=== PATIENT | female | born 1960 | race Caucasian/White ===

== ENCOUNTER 2016-05-04 10:50 | Outpatient (CLI) | payer OTHER | END 2016-05-04 10:51 | disposition home or self-care (01) | DX: Z12.31 Encounter for screening mammogram for malignant neoplasm of breast (principal); Z80.3 Family history of malignant neoplasm of breast ==

== ENCOUNTER 2016-10-26 08:53 | Outpatient (CLI) | payer OTHER ==
[2016-10-26 16:55] LABS: CREATININE 0.5 mg/dL (0.4-1.0); POTASSIUM 3.9 mmol/L (3.5-5.0)
== END 2016-10-26 08:54 | disposition home or self-care (01) ==
LOC: LAB.WCP 08:53
PROVIDERS: ATTEND Physician Assistant Medical
DX: R73.01 Impaired fasting glucose (principal)
CPT/HCPCS: 36415; 80048

== ENCOUNTER 2017-03-09 08:00 | Outpatient (CLI) | payer OTHER ==
[2017-03-09 12:51] LABS: BASOPHILS % (AUTO) 0.6 %; EOSINOPHILS # (AUTO) 0.1 10^3/uL (0.0-0.7); EOSINOPHILS % (AUTO) 0.9 %; LYMPHOCYTES # (AUTO) 1.9 10^3/uL (1.5-3.5); LYMPHOCYTES % (AUTO) 32.2 %; MEAN CORPUSCULAR HEMOGLOBIN 30.9 pg (27.0-31.0); MEAN CORPUSCULAR HGB CONC 33.5 g/dL (32.0-36.0); MEAN CORPUSCULAR VOLUME 92.2 fL (81.0-99.0); MEAN PLATELET VOLUME 8.8 fL (7.9-10.8); MONOCYTES # (AUTO) 0.3 10^3/uL (0.0-1.0); MONOCYTES % (AUTO) 4.9 %; NEUTROPHILS # (AUTO) 3.6 10^3/uL (1.5-6.6); NEUTROPHILS % (AUTO) 61.4 %; PLT - PLATELET COUNT 266 10^3/uL (130-450); RED BLOOD COUNT 4.22 10^6/uL (4.20-5.40); RED CELL DISTRIBUTION WIDTH 12.8 % (12.0-15.0); WHITE BLOOD COUNT 5.8 x10^3/uL (4.8-10.8)
[2017-03-09 13:42] LABS: ALBUMIN 4.6 g/dL (3.2-5.5); ALBUMIN/GLOBULIN RATIO 1.6 (1.0-2.2); ALKALINE PHOSPHATASE 46 IU/L (42-121); ALT ALANINE AMINOTRANSFERASE 18 IU/L (10-60); AST ASPARTATE AMINOTRANSFERASE 21 IU/L (10-42); BILIRUBIN,TOTAL 0.4 mg/dL (0.2-1.0); BUN - BLOOD UREA NITROGEN 17 mg/dL (6-20); CALCIUM 8.8 mg/dL (8.5-10.3); CARBON DIOXIDE - CO2 27 mmol/L (21-32); CHLORIDE 106 mmol/L (101-111); CHOL/HDL RATIO 2.9 (<4.4); CHOLESTEROL 183 mg/dL; CREATININE 0.5 mg/dL (0.4-1.0); GFR - MDRD 129 (>89); GLUCOSE 105 mg/dL (70-100); HDL CHOLESTEROL 64 mg/dL; LDL CHOLESTEROL,CALCULATED 99 mg/dL; LDL/HDL RATIO 1.5 (<4.4); SODIUM 138 mmol/L (135-145); TOTAL PROTEIN 7.4 g/dL (6.7-8.2); VLDL CHOLESTEROL 20 mg/dL
== END 2017-03-09 08:01 | disposition home or self-care (01) ==
LOC: LAB.WCP 08:00
PROVIDERS: ATTEND Physician Assistant Medical
DX: Z00.00 Encounter for general adult medical examination without abnormal findings (principal)
CPT/HCPCS: 36415; 80053; 80061; 83721; 84443; 85025

== ENCOUNTER 2018-09-30 10:58 | Outpatient (CLI) | payer OTHER ==
--- NOTE | 2018-09-30 14:48 | Mammography Report ---
Reason: SCREENING MAMMO Procedure Date: 09/30/2018 Accession Number: [id number] / [id number] Procedure: JOHN - Screening Mammo Dig Bilat CPT Code: FULL RESULT: EXAM: Screening Mammo Dig Bilat DATE: 09/30/2018 11:43 AM CLINICAL HISTORY: Routine screening. No reported personal or family history of breast cancer. TECHNIQUE: (B) - Bilateral CC and MLO views were obtained. COMPARISON: 05/04/2016 through 12/15/2012 PARENCHYMAL PATTERN: (D) - The breasts demonstrate heterogeneously dense fibroglandular parenchyma bilaterally. FINDINGS: Bilateral breasts: There are no suspicious masses, calcifications, or areas of distortion. Stable oval mass a circumscribed margins medial right breast. IMPRESSION: Benign findings. BI-RADS category 2. RECOMMENDATION: (ANNUAL) - Recommend routine annual screening mammography. BI-RADS CATEGORY: (2) - Benign Findings. STANDARD QUALIFYING STATEMENTS: 1. This examination was not reviewed with the aid of Computer-Aided Detection (CAD). 2. A negative or benign imaging report should not preclude biopsy if clinically suspicious findings are present. 3. Dense breasts may obscure an underlying neoplasm. 4. This examination was reviewed without the aid of 3D breast imaging (tomosynthesis).
== END 2018-09-30 10:59 | disposition home or self-care (01) ==
LOC: DI 10:58
DX: Z12.31 Encounter for screening mammogram for malignant neoplasm of breast (principal)
CPT/HCPCS: 77067

== ENCOUNTER 2019-12-12 11:14 | Outpatient (CLI) | payer OTHER ==
--- NOTE | 2019-12-12 12:32 | Ultrasound Report ---
PROCEDURE: Duplex Ext Veins Left INDICATIONS: LT LOWER EXTREMETY PX TECHNIQUE: Real-time imaging, as well as color and pulse Doppler interrogation, were performed of the lower extr emity deep veins from the inguinal ligament to the popliteal fossa. COMPARISON: None. FINDINGS: The deep veins are normally compressible, and free of intraluminal thrombus. Color and pu lse Doppler demonstrate normal phasic intraluminal flow. There is normal augmentation response to di stal compression maneuver. IMPRESSION: No DVT found left leg. Reviewed by: Willie Pretty MD on 12/12/2019 12:31 PM PST Approved by: Willie Pretty MD on 12/12/2019 12:31 PM PST Station ID: [id number]
== END 2019-12-12 11:15 | disposition home or self-care (01) ==
LOC: DI 11:14
PROVIDERS: ATTEND Internal Medicine
DX: M79.605 Pain in left leg (principal)

== ENCOUNTER 2019-12-29 11:28 | Outpatient (CLI) | payer OTHER ==
--- NOTE | 2019-12-29 12:30 | MRI Report ---
PROCEDURE: Knee LT W/O INDICATIONS: LT KNEE PAIN TECHNIQUE: Noncontrast sagittal PD fast spin echo and T2 fast spin echo with fat saturation, sagittal 3-D gradie nt sequence with fat saturation; coronal T1 spin echo and PD fast spin echo with fat saturation, and axial PD fast spin echo with fat saturation through the knee. COMPARISON: Plain films of the left knee dated 04.12.14 FINDINGS: Image quality: Excellent. Menisci: Medial extrusion of the medial meniscus is present which demonstrates amorphous high signal intensity within its body and posterior horn, demonstrating inferior articular surface extension, ind icating degenerative tearing. There is linear vertically oriented high signal intensity within the po sterior horn medial meniscus at the meniscal root ligament insertion site, demonstrating inferior art icular surface extension. Lateral meniscus demonstrates a discoid configuration. There is amorphous h igh signal intensity within the lateral meniscal body without evidence of articular surface extension . Cruciate ligaments: The anterior and posterior cruciate ligaments appear intact. Medial structures: The medial collateral ligament appears intact. Visualized portions of the pes ans erinus tendons appear normal. No abnormal bursal fluid. Lateral structures: The lateral collateral ligament, long and short heads of the biceps femoris tend on appear intact. The popliteus tendon appears normal. Iliotibial band appears normal. Anterior structures: The quadriceps and patellar tendons appear intact. Mild T2 signal elevation wit hin the patellar tendon at the patellar insertion site. Mild superolateral patellar subluxation. No f emoral trochlear dysplasia or ventral trochlear prominence. Moderate edema and a small amount of flui d within the superolateral aspect of the infrapatellar fat pad. Bones and cartilage: No bone marrow contusions or fractures. Mild tricompartmental periarticular ost eophyte formation. Mild articular cartilage loss diffusely overlies the weightbearing aspects of the medial femoral condyle and medial tibial plateau. Severe articular cartilage loss overlies the latera l patellar facet inferiorly. Technique cartilage fibrillation overlies the lateral patellar facet mid portion. Joint space: There is a small knee joint effusion and a trace Benitez?s cyst. Normal appearing synovi al plicae are incidentally noted. IMPRESSION: 1. Medial meniscal tearing. 2. Discoid lateral meniscus without tear. 3. Small knee joint effusion and trace Benitez's cyst. 4. Tricompartmental osteophyte is with associated articular cartilage loss. 5. Findings consistent with lateral patellofemoral friction syndrome in the appropriate clinical sett ing. 6. Mild patellar tendinitis. Reviewed by: Virginia Moses MD on 12/29/2019 11:28 AM MILLIE Approved by: Virginia Moses MD on 12/29/2019 11:28 AM MILLIE Station ID: [id number]
== END 2019-12-29 11:29 | disposition home or self-care (01) ==
LOC: DI 11:28
PROVIDERS: ATTEND Internal Medicine
DX: S83.242A Other tear of medial meniscus, current injury, left knee, initial encounter (principal); M25.462 Effusion, left knee; M71.22 Synovial cyst of popliteal space [Baker], left knee; M94.262 Chondromalacia, left knee

== ENCOUNTER 2020-01-26 09:43 | Outpatient (CLI) | payer OTHER ==
--- NOTE | 2020-01-26 14:58 | XRAY Report ---
PROCEDURE: Knee Standing LT INDICATIONS: CHRONIC LEFT KNEE PAIN TECHNIQUE: Or views of the left knee, and 2 views of the right knee. COMPARISON: MRI knee 12/29/2019, x-ray left knee 04/12/2014. FINDINGS: Bones: No acute fractures or dislocations. No suspicious bony lesions. There is minimal bilateral m edial compartment narrowing which has not changed compared to prior exam. Minimal patellofemoral comp artment narrowing is also identified. No erosions or periarticular osteophytes. Soft tissues: No knee joint effusions. No suspicious soft tissue calcification. IMPRESSION: Minimal arthritic change. Reviewed by: Natalie Cruz MD on 01/26/2020 2:57 PM PST Approved by: Natalie Cruz MD on 01/26/2020 2:57 PM PST Station ID: [id number]
== END 2020-01-26 23:59 | disposition home or self-care (01) ==
LOC: DI.N 09:43
PROVIDERS: ATTEND Orthopaedic Surgery
DX: M17.12 Unilateral primary osteoarthritis, left knee (principal)

== ENCOUNTER 2020-07-31 12:59 | Outpatient (CLI) | payer OTHER ==
--- NOTE | 2020-08-01 14:21 | Mammography Report ---
BILATERAL DIGITAL SCREENING MAMMOGRAM 3D/2D: 07/31/2020 CLINICAL: Routine screening. Comparison is made to exams dated: 09/30/2018 mammogram, 05/04/2016 mammogram, 01/10/2015 mammogram, mammogram, and 12/15/2012 mammogram - [facility]. The tissue of both breast s is heterogeneously dense. This may lower the sensitivity of mammography. No significant masses, calcifications, or other findings are seen in either breast. There has been no significant interval change. IMPRESSION: NEGATIVE There is no mammographic evidence of malignancy. A 1 year screening mammogram is recommended. This exam was interpreted at Station ID: [id number]. NOTE: For mammograms, a report in lay terms will be sent to the patient. Approximately 15% of breast malignancies will not be visualized mammographically. In the management of a palpable breast mass, a negative mammogram must not discourage biopsy of a clinically suspicious lesion. Electronically Signed By: Perfecto Little M.D. [facility] [place]:07/31/2020 16:21:29 ACR BI-RADS Category 1: Negative 3341F PARENCHYMAL PATTERN: (D) - The breast(s) demonstrate(s) heterogeneously dense fibroglandular diane herrera. BI-RADS CATEGORY: (1) - 1 RECOMMENDATION: (ANNUAL) - Recommend routine annual screening mammography. [id number] 1 year screening LATERALITY: (B)
== END 2020-07-31 13:00 | disposition home or self-care (01) ==
LOC: DI 12:59
DX: Z12.31 Encounter for screening mammogram for malignant neoplasm of breast (principal)

== ENCOUNTER 2023-03-08 11:06 | Outpatient (CLI) | payer OTHER ==
--- NOTE | 2023-03-09 11:57 | Mammography Report ---
BILATERAL DIGITAL SCREENING MAMMOGRAM 3D/2D: 03/08/2023 CLINICAL: Routine screening. Comparison is made to exams dated: 07/31/2020 mammogram, 09/30/2018 mammogram, 05/04/2016 mammogram, mammogram, and 12/12/2013 mammogram - [facility]. Both breasts are heterogeneously dense, which may obscure small masses (category c / 51-75% glandular tissue). No significant masses, calcifications, or other findings are seen in either breast. There has been no significant interval change. IMPRESSION: NEGATIVE There is no mammographic evidence of malignancy. A 1 year screening mammogram is recommended. Based on the Tyrer Cuzick model (a risk assessment model) the patient's lifetime risk is 10.0% and he r 10 year risk is 4.1%. According to the ACR, ACS, and NCCN guidelines, an annual breast MRI exam adair ng with mammogram is recommended if the patients lifetime risk is 20% or greater. This exam was interpreted at Station ID: [id number]. NOTE: For mammograms, a report in lay terms will be sent to the patient. Approximately 15% of breast malignancies will not be visualized mammographically. In the management of a palpable breast mass, a negative mammogram must not discourage biopsy of a clinically suspicious lesion. Electronically Signed By: Carissa meredith/yuan:03/08/2023 14:45:51 ACR BI-RADS Category 1: Negative 3341F PARENCHYMAL PATTERN: (D) - The breast(s) demonstrate(s) heterogeneously dense fibroglandular diane herrera. BI-RADS CATEGORY: (1) - 1 Mammogram [id number] 1 year screening LATERALITY: (B)
== END 2023-03-08 11:07 | disposition home or self-care (01) ==
LOC: DI 11:06
DX: Z12.31 Encounter for screening mammogram for malignant neoplasm of breast (principal); R92.333 Mammographic heterogeneous density, bilateral breasts